=== PATIENT | male | born 1960 | race Caucasian/White ===

== ENCOUNTER 2019-05-17 14:16 | Emergency (ER) | payer OTHER, SELFPAY ==
[2019-05-17 14:30] VITALS: BP 154/102; PULSE 84; RESP 19; TEMP 36.6; O2SAT 96
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
[2019-05-17 16:48] VITALS: BP 150/86; PULSE 63; O2SAT 96
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
== END 2019-05-17 16:50 | disposition home or self-care (01) ==
PROVIDERS: Emergency Provider Nurse Practitioner Family; PCP Family Medicine
DX: S13.4XXA Sprain of ligaments of cervical spine, initial encounter (principal); V49.40XA Driver injured in collision with unspecified motor vehicles in traffic accident, initial encounter
CPT/HCPCS: 72125; 99282; 99284